=== PATIENT | male | born 1975 ===

== ENCOUNTER 2023-02-06 01:15 | Emergency (ER) | payer OTHER ==
[2023-02-06 01:22] VITALS: BP 165/96; PULSE 76; RESP 18; TEMP 98.3; BMI 29.5
[2023-02-06] MEDS ORDERED: LIDOCAINE 5% TOPICAL PATCH TP ONE (01:45)
[2023-02-06] MEDS ORDERED: ACETAMINOPHEN 500 MG TABLET (FP) PO ONE (01:45)
[2023-02-06] MEDS ORDERED: LIDOCAINE 5% TOPICAL PATCH ONE (01:47)
[2023-02-06] MEDS ORDERED: ACETAMINOPHEN 325 MG TABLET (FP) ONE (01:47)
[2023-02-06] MEDS ORDERED: LIDOCAINE PATCH REMOVAL MC ONE (14:00)
== END 2023-02-06 02:18 | disposition home or self-care (01) ==
LOC: JER 01:15
DX: M54.2 Cervicalgia (principal); M54.9 Dorsalgia, unspecified; M25.519 Pain in unspecified shoulder; V43.52XA Car driver injured in collision with other type car in traffic accident, initial encounter; Y93.I9 Activity, other involving external motion
CPT/HCPCS: 71046-TC-FY; 72050-TC-FY; 99284-25